=== PATIENT | female | born 1995 | race Caucasian/White ===

== ENCOUNTER 2017-01-17 02:18 | Emergency (ER) | payer SELFPAY ==
[~2017-01-17] VITALS: Ht 152.4 cm; Wt 59.1 kg
[2017-01-17 02:30] VITALS: TEMP 97.8
[2017-01-17 03:12] LABS: CALCIUM 9.4 mg/dL (8.4-10.2); CREATININE, serum 0.54 mg/dL (0.52-1.25); POTASSIUM 4.4 mmol/L (3.4-5.0)
[2017-01-17 04:55] VITALS: BP 120/65; PULSE 120
== END 2017-01-17 04:56 | disposition home or self-care (01) ==
LOC: COL.ER 02:18
PROVIDERS: Emergency Medicine
DX: F10.120 Alcohol abuse with intoxication, uncomplicated (principal); Y90.4 Blood alcohol level of 80-99 mg/100 ml; R11.10 Vomiting, unspecified
CPT/HCPCS: J2405; J7030